=== PATIENT | male | born 1960 | race Hispanic/Latino ===

== ENCOUNTER → 2020-11-09 16:16 | Outpatient (CLI) | payer OTHER, SELFPAY ==
[2020-11-09 16:41] LABS: COVID19 -Nasal RAPID Negative (Negative)
== END ==
PROVIDERS: Visit Provider Nurse Practitioner Family
DX: Z20.822 Contact with and (suspected) exposure to COVID-19 (principal)
CPT/HCPCS: 87635

== ENCOUNTER → 2020-11-10 14:51 | Day surgery (SDC) | payer OTHER, SELFPAY ==
[2020-11-10 15:05] VITALS: BP 110/71; PULSE 81; RESP 14; TEMP 36.3; O2SAT 99; BMI 31.3
[2020-11-10] MEDS: ACETAMINOPHEN 325 MG TABLET 975 MG PO (16:28)
[2020-11-10] MEDS: GABAPENTIN 300 MG CAPSULE PO (16:28)
[2020-11-10] MEDS: LACTATED RINGERS 1,000 ML 42 ML IV (16:28)
--- NOTE | 2020-11-10 16:31 | PM.PREOP ---
Pre-operative Note Interval Note History & Physical reviewed/Exam performed by Physician: Yes Changes to H&P: No
[2020-11-10] MEDS: CEFAZOLIN 1 GM VIAL 2 GM IV (17:08)
--- NOTE | 2020-11-10 17:12 | SUR.OPER ---
Beach chair on padded OR bed. Slightly elevated. Head on pillow. Non-operative arm secured <90 degrees abduction on padded arm board with pillow support underneath. Pillow under knees. Gel pad under knees. Safety belt at thigh. Cloth tape over blanket over lower legs.
[2020-11-10] MEDS: BUPIVACAINE 0.25% (PF) VIAL 30 ML INJ (17:24)
[2020-11-10] MEDS: EPINEPHrine 1 MG/ML 0.15 MG SUBCUT (17:30)
[2020-11-10 17:35] VITALS: BP 108/71; PULSE 90; RESP 15; TEMP 36.6; O2SAT 97
[2020-11-10 17:37] VITALS: BP 109/56; PULSE 92; RESP 13; O2SAT 99
--- NOTE | 2020-11-10 17:38 | P.OP_ITS ---
Operative Date/Time/Diagnoses Date of procedure: 11/10/20 Time of procedure: 17:00 Pre-op diagnosis: Left shoulder postoperative wound infection Post-op diagnosis: same Procedure & Clinicians Procedure: Irrigation and debridement of left shoulder incision Same procedure as scheduled: Yes Indications: Concerns of a possible superficial infection to the left shoulder incision Surgeon: Sujit Kearns Click Yes if Unassisted: Yes Anesthesia Type: General Operative Notes Findings: No sign of any obvious infection. No sign of any purulence. No sign of any tracking passed the deltoid. No sign of any joint involvement. Closure Type: primary Specimen(s): other (Culture sent to microbiology for cultures and sensitivities) Estimated Blood Loss (mL): 10 Blood products transfused: none Procedure in detail: On date of service, Patient was met in the holding area. The operative site was signed and witnessed by the OR staff. The surgeries once again discussed with the patient and any remaining questions they had were answered fully. Patient was taken back to the operating theater and placed on the operating table in a supine position. Great care was taken to ensure that all bony prominences were properly padded. Patient was then placed into the b each chair position. The head and neck were properly positioned and secured. A timeout was performed verifying patient's name, procedure, and the operative site. The upper extremity was then prepped and draped in the normal sterile fashion. The anterior lateral incision was opened with a 10 blade. No sign of any purulence. Cultures were obtained and sent to microbiology. After we were done and getting cultures, 2 g of Ancef was then given. There is no sign of any tracking deep past the deltoid. Small opening was made into the deltoid to make sure there was no deep abscess. No sign of any purulence past the deltoid or involving the subacromial space. At this point, the wound was then copiously irrigated with 1 L of normal saline. A small opening made in the deltoid was reclosed with 0 Ethibond. The wound was packed with iodoform and then closed loosely with 3-0 nylon. The shoulder was cleaned, dried, and dressed. Patient was extubated taken to the PACU in stable condition. Complications: none Post-operative Condition: stable Disposition: PACU Plan for aftercare: Patient will follow-up next week for a wound check.
[2020-11-10] MEDS: OXYCODONE IR 5 MG TABLET PO (17:55)
[2020-11-10 17:59] VITALS: BP 132/72; PULSE 83; RESP 12; TEMP 36.6; O2SAT 99
[2020-11-10 18:11] VITALS: BP 147/79; PULSE 76; RESP 12; O2SAT 100
== END | disposition home or self-care (01) ==
PROVIDERS: Referring Provider Orthopaedic Surgery; Visit Provider Orthopaedic Surgery
PROC: (CPT 23030; principal; 2020-11-10 16:00)
DX: T81.42XA Infection following a procedure, deep incisional surgical site, initial encounter (principal); Z98.890 Other specified postprocedural states; I10 Essential (primary) hypertension; E66.9 Obesity, unspecified; Z68.31 Body mass index [BMI] 31.0-31.9, adult
CPT/HCPCS: 23030; 87070; 87075; 87077; 87147; 87186; 87205; J0171; J0330; J0690; J2405; J2704

== ENCOUNTER → 2021-01-12 09:16 | Outpatient (CLI) | payer OTHER, SELFPAY ==
[2021-01-12 12:14] LABS: COVID19 -Nasal RAPID Negative (Negative)
== END ==
PROVIDERS: Visit Provider Physician Assistant
DX: Z20.822 Contact with and (suspected) exposure to COVID-19 (principal)
CPT/HCPCS: 87635

== ENCOUNTER 2021-01-13 08:55 | Day surgery (SDC) | payer OTHER, SELFPAY ==
[2021-01-12 08:22] VITALS: BMI 32.1
[2021-01-13] VITALS (9 sets, daily range): BP systolic 103–182; BP diastolic 63–95; PULSE 70–91; RESP 11–18; TEMP 36.1–36.6; O2SAT 94–100; BMI 32.1
[2021-01-13] MEDS: LACTATED RINGERS 1,000 ML 42 ML IV (09:37)
--- NOTE | 2021-01-13 10:27 | PM.PREOP ---
Pre-operative Note Interval Note History & Physical reviewed/Exam performed by Physician: Yes Changes to H&P: No
--- NOTE | 2021-01-13 10:58 | SUR.PREOP ---
Block start time [1048] . Monitoring initiated and maintained throughout procedure. Oxygen and medications given per anesthesiologist instructions. Patient remained stable throughout procedure, no adverse reactions noted. Block end time [1052].
[2021-01-13] MEDS: CEFAZOLIN 2 GM/20 ML SYRINGE IV (11:04)
[2021-01-13] MEDS: BUPIVACAINE 0.5% (PF) 30 ML, EPINEPHrine 0.15 MG INJ (11:27)
--- NOTE | 2021-01-13 11:30 | P.PCN_ITS ---
Procedures Date/Time Date of procedure: 01/13/21 Time of procedure: 10:40 General Procedure description: Ultrasound guided interscalene brachial plexus nerve block for post op pain control after left shoulder arthroscopy by Dr. Kearns. Risk and benefits of procedure discussed with patient. ASA monitoring applied to patient. O2 given via nasal cannula. 2 mg Versed and 50 mcg fentanyl given for procedural sedation. Skin site was prepped with chlorhexidine and allowed to fully dry. Sterile gloves, mask, hat and probe cover were used to maintain sterility. 2% lidocaine and 30ga needle was used to make a small skin wheal at needle insert ion site. Under ultrasound guidance, a 21ga 50mm Pajunk needle was directed into the interscalene groove (middle/anterior scalenes) near the brachial plexus. Patient reported no parasthesias. After negative aspiration, 20 mL 0.5% ropivicaine and 10mg dexamethasone were injected around brachial plexus. Patient tolerated procedure well.
--- NOTE | 2021-01-13 11:33 | SUR.OPER ---
Beach chair with [facility]er. Lower body on padded OR bed. Head in foam padded head cradle, secured with straps. Non-operative arm secured <90 degrees abduction. Pillow under knees. Safety belt at thigh. Cloth tape over blanket over lower legs.
--- NOTE | 2021-01-13 12:26 | PM.OP.1 ---
Operative Date/Time/Diagnoses Date of procedure: 01/13/21 Time of procedure: 11:30 Pre-op diagnosis: Left shoulder rotator cuff tear with history of postoperative infection Post-op diagnosis: same Procedure & Clinicians Procedure: Left shoulder irrigation and debridement with repeat rotator cuff repair Same procedure as scheduled: Yes Indications: History of left rotator cuff tear as well as postoperative infection Surgeon: Sujit Kearns Type Photography Supervisor: Gray Parish Anesthesia Type: General and Peripheral nerve block Operative Notes Findings: No signs of any residual infection to the glenohumeral joint or subacromial space. No sign of any superficial soft tissue infection. Patient did have signs of a recurrent tear to the supraspinatus of his left shoulder. No sign of any infraspinatus or subscapularis tear. Closure Type: primary Applied: implant(s) (Four Arthrex anchors for a SpeedBridge fixation) Estimated Blood Loss (mL): 5 Procedure in detail: On date of service, Patient was met in the holding area. The operative site was signed and witnessed by the OR staff. The surgeries once again discussed with the patient and any remaining questions they had were answered fully. Patient was taken back to the operating theater and placed on the operating table in a supine position. Great care was taken to ensure that all bony prominences were properly padded. Patient was then placed into the beach chair position. The head and neck were properly positioned and secured. A timeout was performed verifying patient's name, procedure, and the operative site. The upper extremity was then prepped and draped in the normal sterile fashion. Previously, the bony anatomy and portal sites were marked out as well as injected with Marcaine with epinephrine. An 11 blade was used to make an incision in the posterior aspect of the shoulder. The camera was placed, and a diagnostic shoulder scope was performed. Findings listed above. Next under direct visualization, a anterior portal was made. Shaver was brought in and a general debridement of the glenoid humeral joint was performed. No sign of any infectious process. There was some degenerative changes throughout the labrum as well as a current tear to the supraspinatus. Next the camera was placed into the subacromial space. A lateral portal was obtained under direct visualization. A combination of the shaver and vapor wand, a debridement of the inflamed tissue as well as inflamed bursa was performed. The lateral gutter was also cleaned out. Once again, no sign of any infectious process. Shaver was used to debride out the subacromial space. After this was all cleaned out, This gave us good visualization of the bursal aspect of the rotator cuff as well as the acromial arch. We then turned our attention to the rotator cuff tear. Patient had a very large tear involving the rotator cuff. The entire supraspinatus was torn from the greater tuberosity and retracted a few cm. Due to the acute nature of the tear the cuff was still very mobile and had not scarred in at all. We could very easily pull it back to the rotator cuff footprint. Using the bur, the rotator cuff footprint was decorticated down to bleeding bone. Next, 2 medial anchors were placed. One anteriorly 1 posteriorly. Each anchor had 2 strands of fiber tape for a speed bridge repair. The sutures from the posterior anchor were passed through the posterior aspect of the supraspinatus. Then the sutures from the anterior anchor was passed through the anterior aspect of the supraspinatus. When pulling on the sutures we were able to reduce the supraspinatus to their respective footprints. Next, a punch was used to make a hole in the bone for the 2 medial anchors. This was done also anteriorly and posteriorly. A single suture from the anterior medial anchor and a single suture from the posterior medial anchor were placed into the anterior lateral anchor. This was repeated with the other 2 strands into a more posterior lateral anchor. This Allowed us to tenodesis the rotator cuff across the rotator cuff footprint for the supraspinatus. After the repair there was good coverage of the entire humeral head and a very secure repair of the rotator cuff. Shoulder was taken through range of motion and there was no sign of any other tearing. No sign of any impingement lesions. Camera and cannulas were removed. Portal sites were closed. We then turned our attention to his previous anterior lateral incision. This was opened up in the superior aspect this area was debrided with once again no sign of any infectious process. Patient had some Ethibond suture that seemed to be irritating the surrounding tissue and this was removed. The shoulder wound was then irrigated and then closed with lisa. Shoulder was cleaned, dried, and dressed. Patient was extubated and taken to the PACU in stable condition. Complications: none Post-operative Condition: stable Disposition: PACU Plan for aftercare: Patient will follow our postoperative protocol for rotator cuff repair.
--- NOTE | 2021-01-13 13:32 | SUR.PHASEII ---
Pt rcvd earlier in pacu phase 2 in stable condition, VSS, dc instructions printed for pt and all dc instructions given along with rx paperwork and pt verbalizes understanding. Pt resting comfortably denies pain or nausea, drinking juice without problems.
--- NOTE | 2021-01-13 14:00 | SUR.PHASEII ---
1355-Pt dcd in stable condition, ambulating gait steady, VSS, iv dcd site clear, pt A&O dcd via [place] to private vehicle and out at [facility], [place], all dc instructions given to along with rx as well and she verbalizes understanding.
== END 2021-01-13 13:55 | disposition home or self-care (01) ==
PROVIDERS: PCP Family Medicine; Referring Provider Orthopaedic Surgery; Visit Provider Orthopaedic Surgery
PROC: (CPT 29827; principal; 2021-01-13 10:45)
DX: M75.112 Incomplete rotator cuff tear or rupture of left shoulder, not specified as traumatic (principal); Z98.890 Other specified postprocedural states; I10 Essential (primary) hypertension
CPT/HCPCS: 29827; 29823; 64450; J0171; J0690; J1100; J1885; J2250; J2405; J2704; J3010